=== PATIENT | female | born 1960 | race Caucasian/White ===

== ENCOUNTER → 2018-02-10 11:02 | Outpatient (CLI) | payer MEDICAID, SELFPAY ==
[2018-02-10 13:41] LABS: D-Dimer Quantitative (DVT/PE) 0.73 FEU/ug/m (0.27-0.49)
== END ==
PROVIDERS: Family Provider Family Medicine; PCP Family Medicine; Visit Provider Family Medicine
DX: R07.9 Chest pain, unspecified (principal)
CPT/HCPCS: 84484; 85379

== ENCOUNTER 2018-02-10 14:39 | Emergency (ER) | payer MEDICAID, SELFPAY ==
[2018-02-10 14:40] VITALS: BP 142/81; PULSE 107; RESP 16; TEMP 35.8; O2SAT 97; BMI 23.2
--- NOTE | 2018-02-10 15:48 | ED.VISSUMM ---
- ER Visit Summary Date of Service: 02/10/18 Chief Complaint: Chest pain History of Present Illness: The patient is a 57 F a one-week history of chest pain that began last . She describes a dull ache. It is not pleuritic. She denies any cough. No hemoptysis. There is shortness of breath worse with exertion. She has no history of DVT or PEs. She has no significant risk factors for DVT or PE she is not on control. She has had no recent travel, surgery or mobilization. No recent loss of sensation. No family history of blood clots. Her primary care physician's office did a troponin which was negative and a d-dimer which was elevated at 0.73 and sent her to the ER for further evaluation. Physical Examination: Middle-aged female no acute distress. Vital signs are stable afebrile. Pulse ox 97% on room air no signs of hypoxia. H EENT exam unremarkable. Neck nontender. Lungs clear to auscultation bilaterally. Heart regular rhythm no murmur. Chest wall nontender. Abdomen soft nontender. Normal bowel sounds no peritoneal signs. He is moving all 4 extremities. Neurovascularly intact. Calves nontender, no edema no cords. Neurologically awake alert with no focal motor deficits. Test Results: She had outpatient troponin which was normal. Outpatient d-dimer which was 0.73. Sinus rhythm rate of 96 with no acute signs of [place] nor ischemia. Chest x-ray no acute abnormality. CTA chest no PE. Read by the radiologist reviewed by me. CBC normal. Chemistries unremarkable. EKG sinus rhythm rate of 96 no acute signs of ischemia. Emergency Department Course and Treatment: Clinically her symptoms do not sound like a PE. I am more concerned with exertional phase of her dyspnea. She undergo a cardiac workup I will do a CTA for PE due to the elevated outpatient d-dimer Treatment Plan: Multiple repeat exams patient is doing well. She and I discussed admission this may be new onset COPD. However I did explain to her that we could not explain the chest pain and she does have risk factors including her smoking history. She has not had any recent cardiac workup for 3-4 years. She did have a prior cardiac cath that showed some coronary disease but nothing that need to be stented at that time. She adamantly does not want to stay. And wants to go through an outpatient workup including stress testing and pulmonary function testing. She will sign out AGAINST MEDICAL ADVICE. Disposition: Discharge a.m. Impression: Acute chest pain and dyspnea of uncertain etiology This note was generated with [employer] dictation software. It may contain incorrect words, spelling, and punctuation that were not noted in review of the chart prior to signing ED Disposition - Plan for ED Patient: Chief Complaint: Chest Pain Referrals: Ervin Yusuf MD [Primary Care Provider] -
--- NOTE | 2018-02-10 15:52 | ED.DCSUM_ITS ---
- ER Visit Summary Date of Service: 02/10/18 Chief Complaint: Chest pain History of Present Illness: The patient is a 57 F a one-week history of chest pain that began last . She describes a dull ache. It is not pleuritic. She denies any cough. No hemoptysis. There is shortness of breath worse with exertion. She has no history of DVT or PEs. She has no significant risk factors for DVT or PE she is not on control. She has had no recent travel, surgery or mobilization. No recent loss of sensation. No family history of blood clots. Her primary care physician's office did a troponin which was negative and a d-dimer which was elevated at 0.73 and sent her to the ER for further evaluation. Physical Examination: Middle-aged female no acute distress. Vital signs are stable afebrile. Pulse ox 97% on room air no signs of hypoxia. H EENT exam unremarkable. Neck nontender. Lungs clear to auscultation bilaterally. Heart regular rhythm no murmur. Chest wall nontender. Abdomen soft nontender. Normal bowel sounds no peritoneal signs. He is moving all 4 extremities. Neurovascularly intact. Calves nontender, no edema no cords. Neurologically awake alert with no focal motor deficits. Test Results: She had outpatient troponin which was normal. Outpatient d-dimer which was 0.73. Sinus rhythm rate of 96 with no acute signs of [place] nor ischemia. Chest x-ray no acute abnormality. CTA chest no PE. Read by the radiologist reviewed by me. CBC normal. Chemistries unremarkable. EKG sinus rhythm rate of 96 no acute signs of ischemia. Emergency Department Course and Treatment: Clinically her symptoms do not sound like a PE. I am more concerned with exertional phase of her dyspnea. She undergo a cardiac workup I will do a CTA for PE due to the elevated outpatient d -dimer Treatment Plan: Multiple repeat exams patient is doing well. She and I discussed admission this may be new onset COPD. However I did explain to her that we could not explain the chest pain and she does have risk factors including her smoking history. She has not had any recent cardiac workup for 3- 4 years. She did have a prior cardiac cath that showed some coronary disease but nothing that need to be stented at that time. She adamantly does not want to stay. And wants to go through an outpatient workup including stress testing and pulmonary function testing. She will sign out AGAINST MEDICAL ADVICE. Disposition: Discharge a.m. Impression: Acute chest pain and dyspnea of uncertain etiology This note was generated with [employer] dictation software. It may contain incorrect words, spelling, and punctuation that were not noted in review of the chart prior to signing ED Disposition - Plan for ED Patient: Chief Complaint: Chest Pain Referrals: Ervin Yusuf MD [Primary Care Provider] -
[2018-02-10] MEDS: 0.9% Normal Saline 1,000 ML 1000 ML IV (16:03)
[2018-02-10] MEDS: Aspirin 81 MG TAB.CHEW 324 MG PO (16:03)
[2018-02-10] MEDS: DiphenhydrAMINE 50 MG/ML Syringe 25 MG IV (16:04)
[2018-02-10] MEDS: MethylPREDNISolone 125 MG/2 ML Vial IV (16:04)
[2018-02-10 16:10] VITALS: BP 136/75; PULSE 84; RESP 15; O2SAT 98
[2018-02-10 16:12] LABS: Anion Gap 7 (5-15); BUN 8 mg/dL (7-18); Chloride 105 mmol/L (98-107); EST Glomerular Filtration Rate 60 mL/min (>60); Est Glom Filt Rate - Afr Amer 73 mL/min (>60); Estimated Creatinine Clearance 47.91 ml/min; Glucose 140 mg/dL (74-106); Potassium 3.4 mmol/L (3.5-5.1); Sodium Level 140 mmol/L (136-145)
[2018-02-10 16:18] LABS: Absolute Lymphocyte Count 2.38 X10^3/ul (0.83-4.51); Absolute Neutrophil Count 8.9 X10^3/uL (2.0-7.7); Basophil# 0.04 X10^3/uL; Basophil% 0.3 % (0-1); Eosinophil# 0.14 X10^3/uL; Eosinophils% 1.1 % (0-5); Hematocrit 41.7 % (37-47); Hemoglobin 13.4 g/dl (12.0-15.0); Lymphocyte # 2.38 X10^3/ul (4.0); Lymphocyte % 19.5 % (19-41); Mean Corp Hgb Conc 32.1 g/gl (32-36); Mean Corpuscular Hgb 30.5 pg (27.0-32.0); Mean Corpuscular Volume 94.8 fL (81-99); Mean Platelet Vol. 10.3 fl (6.2-12.0); Monocyte# 0.73 X10^3/uL; Neutrophil # 8.91 X10^3/uL (2.7-7.7); Neutrophil % 72.9 % (47-70); Platelet Count 250 K/mm3 (150-450); RBC Distribution Width CV 14.9 % (11.6-14.6); RBC Distribution Width SD 51.9 fl (35.1-43.9); White Blood Count 12.2 K/mm3 (4.4-11.0)
[2018-02-10 16:28] LABS: POSITIVE COUNT NO; POSITIVE DIFFERENTIAL NO; POSITIVE MORPHOLOGY NO
[2018-02-10 18:53] VITALS: BP 135/86; PULSE 86; RESP 23; O2SAT 94
--- NOTE | 2018-02-10 20:13 | ED.DEP ---
ED Disposition - Plan for ED Patient: Disposition: Home or Assisted Living Chief Complaint: Chest Pain Instructions: ED COPD Flare, ED Chest Pain Atypical Unkn Cause Prescriptions: Albuterol Sulfate [Proventil Hfa] 6.7 gm IH Q2H PRN PRN #1 [id number] PRN Reason: copd Prednisone [Deltasone] 40 mg PO DAILY 7 Days tab Referrals: Ervin Yusuf MD [Primary Care Provider] - As soon as possible Additional Instructions: Follow-up with primary care physician tomorrow. You need to outpatient test done both a stress test and pulmonary function testing. This may be related to blockage of your heart could also be underlying chronic obstructive pulmonary disease from her smoking history. He will be started on prednisone to decrease inflammation in your lungs. And an inhaler which would help for underlying lung disease. You need to return to ER if feeling worse or increasing chest pain.
== END 2018-02-10 20:28 | disposition home or self-care (01) ==
PROVIDERS: Emergency Provider Emergency Medicine; Family Provider Family Medicine; PCP Family Medicine
DX: R07.9 Chest pain, unspecified (principal); R06.00 Dyspnea, unspecified; K50.90 Crohn's disease, unspecified, without complications; R74.8 Abnormal levels of other serum enzymes; F17.200 Nicotine dependence, unspecified, uncomplicated
CPT/HCPCS: 71045; 71275; 80048; 84484; 85025; 85379; 93005; 96361; 96374; 96375; 99285; Q9967

== ENCOUNTER → 2018-03-24 12:43 | Outpatient (CLI) | payer MEDICAID, SELFPAY | PROVIDERS: Family Provider Family Medicine; PCP Family Medicine; Visit Provider Surgery | DX: Z53.9 Procedure and treatment not carried out, unspecified reason (principal) ==

== ENCOUNTER 2022-02-05 00:15 | Emergency (ER) | payer MEDICAID, SELFPAY ==
[2022-02-05 00:16] VITALS: BP 152/73; PULSE 62; RESP 16; TEMP 36.6; O2SAT 98; BMI 21.3
--- NOTE | 2022-02-05 00:31 | EX.ED.DYSGE1 ---
HPI History of Present Illness Chief Complaint: Nausea/Vomiting/Diarrhea Narrative Narrative: Patient is a 61-year-old female with past medical history of Crohn's disease and previous surgical history of bowel resection secondary to this. She states 1 week ago she started feeling unwell and then symptoms persisted throughout the week so she went and tested positive for COVID on Friday. She states that she has been having about 6 episodes of loose stool/diarrhea day with 2-3 episodes of nausea and vomiting. She states that symptoms do not seem to be improving and she is concerned about dehydration because of the persistent nausea vomiting or diarrhea and therefore comes in for evaluation. [facility] Medical History COPD (chronic obstructive pulmonary disease) Crohn's disease Home Medications albuterol sulfate 90 mcg/actuation aerosol inhaler (Proventil HFA) 6.7 g IH Q2H PRN PRN BREATHING 02/23/18 [History Last Taken Unknown] dexamethasone 6 mg tablet (Decadron) 6 mg PO DAILY 10 days #10 tabs 02/05/22 [Rx Last Taken Unknown] promethazine 25 mg tablet 25 mg PO TID PRN nausea and vomiting 7 days #21 tabs 02/05/22 [Rx Last Taken Unknown] Allergy/AdvReac Type Severity Reaction Status Date / Time Iodinated Contrast Media Allergy Hives Verified 02/05/22 00:19 [CONTRASTS] Social History Smoking Status: Current every day smoker tobacco type: cigarettes ROS ROS ED Constitutional Constitutional ED: Reports chills and fever(s) ENT ENT ED: Reports sore throat Cardiovascular Cardiovascular: Denies chest pain Respiratory/Chest Respiratory/Chest: Reports cough; Denies dyspnea Gastrointestinal Gastrointestinal: Reports diarrhea, nausea and vomiting; Denies abdominal pain Genitourinary Genitourinary ED: Denies dysuria Musculoskeletal Musculoskeletal: Denies myalgias Integumentary Denies rash Neurologic Neurologic: Reports headache(s); Denies paresthesias Hematologic/Lymphatic Hematologic/Lymphatic: Denies easy bleeding or easy bruising EXAM Physical Exam Const Vital Signs: 02/05/22 00:16 Temperature 97.9 F Temperature Source Temporal Pulse Rate 62 Respiratory Rate 16 Blood Pressure 152/73 H Blood Pressure Mean 99 Pulse Ox 98 Oxygen Delivery Method Room Air Positive well nourished and well developed General Appearance ED: well developed HEENT Reports dry mucous membranes Mouth ED: Yes dry mucous membranes Mouth: dry mucous membranes Eyes PERRL and EOMs intact bilaterally General Eye ED: Negative for scleral icterus Neck supple Resp normal respiratory effort and clear to auscultation bilaterally Cardio regular rate and regular rhythm Rate: other Other Details: Radial pulses are +2-4 bilaterally are equal and symmetric GI non-tender and non-distended GI Narrative: Abdomen is soft nontender nondistended with hyperactive bowel sounds. No voluntary guarding or rigidity. No pulsatile mass or fluid wave. No increased tympany noted Auscultation: hyperactive bowel sounds Palpation: soft Extremity normal to inspection Neuro oriented x3 and CN's II-XII intact bilaterally Sensorium / Orientation: alert Psych mental status grossly normal Skin no rashes or lesions noted Skin Narrative: Skin turgor is increased General Skin Exam: Negative for jaundice MDM MDM MDM Narrative Medical decision making narrative: Patient presented to the ER stable vitals but physical exam consistent with dehydration. Patient blood work was obtained secondary to this and revealed no clinically significant finding. Patient was given 1 L of IV fluid as well as Zofran and Decadron based on her COVID diagnosis. She had no bouts of vomiting while in the ER. On reevaluation she is resting comfortably and has had improvement of her symptoms and her abdomen remains soft and nonsurgical. Therefore at this time as work-up does not reveal signs of severe electrolyte derangement or acute kidney injury and she is not hypoxic from the recent COVID diagnosis there is no need for admission. As patient is over 7 days out from her onset of symptoms she does not qualify for Paxlovid and therefore I will place her on steroids and Phenergan for inflammation control and symptom improvement. Lab Data Attestation: I reviewed the patient's lab results. Labs: Laboratory Results - last 24 hr 02/05/22 02/05/22 00:35 00:35 WBC 6.6 RBC 5.21 Hgb 15.6 H Hct 46.5 MCV 89.3 MCH 29.9 MCHC 33.5 RDW Std Deviation 44.2 H RDW Coeff of [place] 13.6 Plt Count 185 MPV 10.2 Immature Gran % (Auto) 0.500 Neut % (Auto) 59.9 Lymph % (Auto) 29.1 [place] % (Auto) 9.7 Eos % (Auto) 0.3 Baso % (Auto) 0.5 Absolute Neuts (auto) 4.0 Absolute Lymphs (auto) 1.92 Nucleated RBC % 0 Sodium 138 Potassium 3.3 L Chloride 106 Carbon Dioxide 22.0 Anion Gap 10 BUN 24 H Creatinine 1.28 H Estim Creat Clear Calc 35.58 Est GFR (MDRD) Af Amer 54 L Est GFR (MDRD) Non-Af 45 L BUN/Creatinine Ratio 18.8 Glucose 115 H Calcium 9.1 Magnesium 1.7 Discharge Plan Triage Chief Complaint: Nausea/Vomiting/Diarrhea ED Provider: Grant Nair Dx/Rx/DC Orders Clinical Impression: Dehydration, COVID-19, Nausea vomiting and diarrhea, Hx of Crohn's disease Instructions: Coronavirus Disease 2019 (COVID-19): Caring for Yourself or Others, ED Dehydration (Adult) Prescriptions: New promethazine 25 mg tablet 25 mg PO TID PRN (Reason: nausea and vomiting) 7 Days Qty: 21 0RF dexamethasone [Decadron] 6 mg tablet 6 mg PO DAILY 10 Days Qty: 10 0RF No Action albuterol sulfate [Proventil HFA] 6.7 GM HFA aerosol inhaler 6.7 g IH Q2H PRN PRN (Reason: BREATHING) Primary Care Provider: Ervin Yusuf Referrals: Ervin Yusuf MD [Primary Care Provider] - Disposition Disposition: Home, Self Care
[2022-02-05] MEDS: dexAMETHasone 10 MG/ML Vial IV (00:38)
[2022-02-05] MEDS: 0.9% Normal Saline 1,000 ML 999 ML IV (00:38)
[2022-02-05] MEDS: Ondansetron 4 MG/2 ML Vial IV (00:38)
[2022-02-05 00:41] LABS: Absolute Lymphocyte Count 1.92 X10^3/uL (0.83-4.51); Basophil# 0.03 X10^3/uL; Basophil% 0.5 % (0-1); Eosinophil# 0.02 X10^3/uL; Eosinophils% 0.3 % (0-5); Hematocrit 46.5 % (37-47); Hemoglobin 15.6 g/dL (12.0-15.0); Lymphocyte # 1.92 X10^3/ul (0.83-4.51); Lymphocyte % 29.1 % (19-41); Mean Corp Hgb Conc 33.5 g/dL (32-36); Mean Corpuscular Hgb 29.9 pg (27.0-32.0); Mean Corpuscular Volume 89.3 fL (81-99); Mean Platelet Vol. 10.2 fl (6.2-12.0); Monocyte# 0.64 X10^3/uL; Monocyte% 9.7 % (0-10); NRBC Flagged by Analyzer 0 % (0-5); Neutrophil # 3.96 X10^3/uL (2.7-7.7); Neutrophil % 59.9 % (47-70); Platelet Count 185 K/mm3 (150-450); RBC Distribution Width CV 13.6 % (11.6-14.6); RBC Distribution Width SD 44.2 fl (35.1-43.9); Red Blood Count 5.21 M/mm3 (4.2-5.4); White Blood Count 6.6 K/mm3 (4.4-11.0)
[2022-02-05 00:54] LABS: Anion Gap 10 (5-15); BUN 24 mg/dL (7-18); BUN/Creat Ratio 18.8 RATIO (10-20); Calcium,Total 9.1 mg/dL (8.5-10.1); Chloride 106 mmol/L (98-107); Creatinine, Serum 1.28 mg/dL (0.55-1.02); EST Glomerular Filtration Rate 45 mL/min (>60); Est Glom Filt Rate - Afr Amer 54 mL/min (>60); Estimated Creatinine Clearance 35.58 ml/min; Glucose 115 mg/dL (74-106); Magnesium 1.7 mg/dL (1.6-2.6); Potassium 3.3 mmol/L (3.5-5.1); Sodium Level 138 mmol/L (136-145)
[2022-02-05 02:24] VITALS: BP 141/72; PULSE 60; RESP 18; O2SAT 95
== END 2022-02-05 02:29 | disposition home or self-care (01) ==
PROVIDERS: Emergency Provider Emergency Medicine; PCP Family Medicine; Visit Provider Emergency Medicine
DX: U07.1 COVID-19 (principal); J44.9 Chronic obstructive pulmonary disease, unspecified; K50.90 Crohn's disease, unspecified, without complications; R11.2 Nausea with vomiting, unspecified; F17.210 Nicotine dependence, cigarettes, uncomplicated; R19.7 Diarrhea, unspecified; E86.0 Dehydration
CPT/HCPCS: 80048; 83735; 85025; 96361; 96374; 96375; 99283; J7030; A4216; J2405

== ENCOUNTER 2022-05-17 16:43 | Emergency (ER) | payer MEDICAID, SELFPAY ==
[2022-05-17 16:44] VITALS: BP 123/87; PULSE 83; RESP 16; TEMP 35.8; O2SAT 93; BMI 21.4
--- NOTE | 2022-05-17 17:44 | EX.ED.DYSGE1 ---
HPI History of Present Illness Chief Complaint: Nausea/Vomiting/Diarrhea Narrative Narrative: 61-year-old female presenting with nausea, vomiting, diarrhea. She states her diarrhea is chronic. She has a history of Crohn's disease. She states that she does not take anything for Crohn's disease. She does not follow-up with anybody. She does states she has a history of partial colectomy distantly. She is not reporting any abdominal pain today. There is no change in her diarrhea. No black or bloody stools. She states that last she started to get nauseous and vomiting. She states by Friday she was able to start eating and drinking although she has diminished p.o. intake. She states he feels generally weak. She was tested on Friday at the urgent care for influenza and COVID and this was negative. Patient concerned she is dehydrated. She called her primary care's office who referred her to the ER. [facility] Medical History COPD (chronic obstructive pulmonary disease) Crohn's disease Home Medications albuterol sulfate 90 mcg/actuation aerosol inhaler (Proventil HFA) 6.7 g IH Q2H PRN PRN BREATHING 02/23/18 [History Last Taken Unknown] ondansetron 4 mg disintegrating tablet 4 mg PO Q8H PRN nausea and vomiting #10 tabs 05/17/22 [Rx Last Taken Unknown] Allergy/AdvReac Type Severity Reaction Status Date / Time Iodinated Contrast Media Allergy Hives Verified 05/17/22 16:43 [CONTRASTS] Social History Smoking Status: Current every day smoker tobacco type: cigarettes ROS ROS ED Constitutional Constitutional ED: Reports chills and fever(s) Eyes Eyes: Denies diplopia ENT ENT ED: Denies rhinorrhea or sore throat Cardiovascular Cardiovascular: Denies chest pain or palpitations Respiratory/Chest Respiratory/Chest: Denies cough or dyspnea Gastrointestinal Gastrointestinal: Reports diarrhea, nausea and vomiting; Denies abdominal pain Genitourinary Genitourinary ED: Denies dysuria or hematuria Musculoskeletal Musculoskeletal: Denies arthralgias or back pain Integumentary Denies abscess Neurologic Neurologic: Denies headache(s) Psychiatric Psychiatric: Denies anxiety or depression EXAM Physical Exam Const Vital Signs: 05/17/22 16:44 Temperature 96.5 F L Temperature Source Temporal Pulse Rate 83 Respiratory Rate 16 Blood Pressure 123/87 H Blood Pressure Mean 99 Pulse Ox 93 Oxygen Delivery Method Room Air Positive well nourished General Appearance ED: NAD; Negative for pallor HEENT Reports moist mucous membranes Negative for trauma Eyes PERRL and EOMs intact bilaterally General Eye ED: Negative for pale conjunctiva or scleral icterus Resp normal respiratory effort and clear to auscultation bilaterally Auscultation: Negative for rales, rhonchi or wheezes Cardio regular rate and regular rhythm GI normal to inspection, nondistended, normoactive bowel sounds Neuro oriented x3 and CN's II-XII intact bilaterally Sensorium / Orientation: alert Skin no rashes or lesions noted and no wounds General Skin Exam: Negative for jaundice or pallor MDM MDM MDM Narrative Medical decision making narrative: Patient presents with nausea, vomiting, diarrhea. She does not have any abdominal pain her nausea and vomiting is actually improved however she has diminished p.o. intake. She is concerned for dehydration. She is medicated with Zofran 4 mg IV. She denies abdominal pain. She was given a liter of normal saline. Will obtain basic lab work. CBC and CMP are unremarkable. Lipase normal. Patient feeling improved after treatment. At this point I feel she stable for discharge home. I will give her prescription for Zofran. Discharged home in stable condition. Impression: 1. Nausea/vomiting 2. Diarrhea 3. History of Crohn's disease Lab Data Attestation: I reviewed the patient's lab results. Labs: Laboratory Results - last 24 hr 05/17/22 05/17/22 17:51 17:51 WBC 8.1 RBC 4.62 Hgb 13.9 Hct 42.4 MCV 91.8 MCH 30.1 MCHC 32.8 RDW Std Deviation 46.1 H RDW Coeff of [place]de 13.6 Plt Count 194 MPV 10.1 Immature Gran % (Auto) 0.400 Neut % (Auto) 55.8 Lymph % (Auto) 33.7 [place] % (Auto) 9.2 Eos % (Auto) 0.4 Baso % (Auto) 0.5 Absolute Neuts (auto) 4.5 Absolute Lymphs (auto) 2.73 Nucleated RBC % 0 Sodium 138 Potassium 3.5 Chloride 104 Carbon Dioxide 27.0 Anion Gap 7 BUN 15 Creatinine 0.87 Estim Creat Clear Calc 52.35 Est GFR (MDRD) Af Amer 84 Est GFR (MDRD) Non-Af 69 BUN/Creatinine Ratio 17.2 Glucose 98 Calcium 9.2 Total Bilirubin 0.50 AST 29 ALT 29 Alkaline Phosphatase 86 Total Protein 7.5 Albumin 3.4 Globulin 4.1 Albumin/Globulin Ratio 0.8 L Lipase 226 Discharge Plan Triage Chief Complaint: Nausea/Vomiting/Diarrhea Other Complaint: Weakness ED Provider: Shemar Miller Dx/Rx/DC Orders Instructions: ED Vomiting and Diarrhea ... Prescriptions: New ondansetron 4 mg tablet,disintegrating 4 mg PO Q8H PRN (Reason: nausea and vomiting) Qty: 10 0RF No Action albuterol sulfate [Proventil HFA] 6.7 GM HFA aerosol inhaler 6.7 g IH Q2H PRN PRN (Reason: BREATHING) Primary Care Provider: Ervin Yusuf Referrals: Ervin Yusuf MD [Primary Care Provider] - Disposition Disposition: Home, Self Care
[2022-05-17] MEDS: 0.9% Normal Saline 1,000 ML 1000 ML IV (17:50)
[2022-05-17] MEDS: Ondansetron 4 MG/2 ML Vial IV (17:51)
[2022-05-17 17:59] LABS: Absolute Lymphocyte Count 2.73 X10^3/uL (0.83-4.51); Absolute Neutrophil Count 4.5 X10^3/uL (2.0-7.7); Basophil# 0.04 X10^3/uL; Basophil% 0.5 % (0-1); Eosinophil# 0.03 X10^3/uL; Eosinophils% 0.4 % (0-5); Hematocrit 42.4 % (37-47); Hemoglobin 13.9 g/dL (12.0-15.0); Lymphocyte # 2.73 X10^3/ul (0.83-4.51); Lymphocyte % 33.7 % (19-41); Mean Corp Hgb Conc 32.8 g/dL (32-36); Mean Corpuscular Hgb 30.1 pg (27.0-32.0); Mean Corpuscular Volume 91.8 fL (81-99); Mean Platelet Vol. 10.1 fl (6.2-12.0); Monocyte# 0.75 X10^3/uL; Monocyte% 9.2 % (0-10); NRBC Flagged by Analyzer 0 % (0-5); Neutrophil # 4.53 X10^3/uL (2.7-7.7); Neutrophil % 55.8 % (47-70); Platelet Count 194 K/mm3 (150-450); RBC Distribution Width CV 13.6 % (11.6-14.6); RBC Distribution Width SD 46.1 fl (35.1-43.9); Red Blood Count 4.62 M/mm3 (4.2-5.4); White Blood Count 8.1 K/mm3 (4.4-11.0)
[2022-05-17 18:19] LABS: ALB/GLOB Ratio 0.8 RATIO (0.9-2.4); AST(SGOT) 29 U/L (15-37); Alanine Aminotransfer ALT/SGPT 29 U/L (13-56); Albumin, Serum 3.4 g/dL (3.2-5.0); Alkaline Phosphatase 86 U/L (45-117); Anion Gap 7 (5-15); BUN 15 mg/dL (7-18); BUN/Creat Ratio 17.2 RATIO (10-20); Calcium,Total 9.2 mg/dL (8.5-10.1); Chloride 104 mmol/L (98-107); Creatinine, Serum 0.87 mg/dL (0.55-1.02); EST Glomerular Filtration Rate 69 mL/min (>60); Est Glom Filt Rate - Afr Amer 84 mL/min (>60); Estimated Creatinine Clearance 52.35 ml/min; Globulin 4.1 g/dL (2.2-4.2); Glucose 98 mg/dL (74-106); Lipase 226 U/L (73-393); Potassium 3.5 mmol/L (3.5-5.1); Protein, Total 7.5 g/dL (6.4-8.2); Sodium Level 138 mmol/L (136-145)
[2022-05-17 18:43] VITALS: RESP 16
[2022-05-17 19:23] VITALS: RESP 16
== END 2022-05-17 19:23 | disposition home or self-care (01) ==
PROVIDERS: Emergency Provider Student in an Organized Health Care Education/Training Program; PCP Family Medicine; Visit Provider Student in an Organized Health Care Education/Training Program
DX: R11.2 Nausea with vomiting, unspecified (principal); J44.9 Chronic obstructive pulmonary disease, unspecified; K50.90 Crohn's disease, unspecified, without complications; R53.1 Weakness; R19.7 Diarrhea, unspecified; F17.210 Nicotine dependence, cigarettes, uncomplicated
CPT/HCPCS: 80053; 83690; 85025; 96361; 96374; 99283; J7030; A4216; J2405